=== PATIENT | female | born 1995 | race Caucasian/White ===

== ENCOUNTER 2018-02-06 09:44 | Emergency (ER) | payer MEDICAID ==
[~2018-02-06] VITALS: Ht 167.6 cm; Wt 60.0 kg
[~2018-02-06 09:44] MED LIST: DICL50 PO; OMEP20TA39 PO; TRAM50 PO; ZOFR4TAB3 SL
[2018-02-06 10:00] VITALS: BP 121/58; PULSE 97; RESP 15; TEMP 98.3; O2SAT 98
[2018-02-06 11:51] LABS: AUTOMATED NEUTROPHIL # 1.5 TH/MM3 (1.8-7.7); BASOPHIL % 0.3 % (0.0-2.0); EOSINOPHIL % 0.1 % (0.0-4.0); HEMATOCRIT 42.6 % (35.0-46.0); HEMOGLOBIN 14.6 GM/DL (11.6-15.3); LYMPH % 44.6 % (9.0-44.0); LYMPHOCYTE # 1.4 TH/MM3 (1.0-4.8); MEAN CELL VOLUME 88.3 FL (80.0-100.0); MEAN CORPUSCULAR HEMOGLOBIN 30.3 PG (27.0-34.0); MEAN CORPUSCULAR HGB CONC 34.3 % (32.0-36.0); MEAN PLATELET VOLUME 8.3 FL (7.0-11.0); MONO % 7.6 % (0.0-8.0); MONOCYTE # 0.2 TH/MM3 (0-0.9); NEUT % 47.4 % (16.0-70.0); PLATELET COUNT 151 TH/MM3 (150-450); RED BLOOD COUNT 4.82 MIL/MM3 (4.00-5.30); RED CELL DISTRIBUTION WIDTH 12.8 % (11.6-17.2); WHITE BLOOD COUNT 3.2 TH/MM3 (4.0-11.0)
--- NOTE | 2018-02-06 11:57 | PD ---
HPI Chief Complaint: Cold / Flu Symptoms Time Seen by Provider: 11:55 Travel History International Travel<30 days: No Contact w/Intl Traveler<30days: No History of Present Illness HPI 22-year-old female presents emergency department with 5 days of flulike symptoms including headache, cough, sore throat, postnasal drip, wheezing, and shortness of breath. Patient has had nausea and vomiting as well. Patient has had fever as high as 102.1 controlled with Tylenol. Patient reports decreased urinary output secondary to not being able to keep things down. Patient denies diarrhea. Patient denies significant abdominal pain. Patient states last week she had terrible body aches everywhere. She states those have improved, but her nausea and vomiting and cough continue. Patient denies smoking history. No history of needing inhalers or asthma in the past. Patient denies ear pain. She states she was seen last and had a negative flu test and given Zofran. She was seen at [facility]. She has no known drug allergies. [facility] Past Medical History ?: Unknown LMP: 01/2018 Past Surgical History Appendectomy: Yes Tonsillectomy: Yes Other Surgery: Yes (FACIAL) Social History Alcohol Use: Yes (OCCAS) Tobacco Use: No Substance Use: No Allergies-Medications (Allergen,Severity, Reaction): Coded Allergies: No Known Allergies (Unverified Adverse Reaction, Unknown, 02/06/18) Reported Meds & Prescriptions Reported Meds & Active Scripts Active No Active Prescriptions or Reported Medications Review of Systems Except as stated in HPI: all other systems reviewed are Neg General / Constitutional: Positive: Fever, Chills Eyes: No: Diploplia, Blurred Vision, Photophobia, Drainage, Visual changes HENT: Positive: Headaches, Lightheadedness, Sore Throat, Rhinitis, Rhinorrhea, Congestion, No: Vertigo, Nosebleed, Neck Stiffness, Neck Pain, Dental Difficulties, Earache Cardiovascular: No: Chest Pain or Discomfort Respiratory: Positive: Cough, Shortness of Breath, Wheezing, No: Sneezing, Orthopnea, Hemoptysis, Night Sweats, Pleuritic Pain Gastrointestinal: Positive: Nausea, Vomiting, Abdominal Pain (Cramping), No: Diarrhea Genitourinary: Positive: Decreased Urinary Output, No: Urgency, Frequency, Dysuria Musculoskeletal: No: Pain Skin: No Rash Neurologic: No: Weakness Psychiatric: No: Depression Endocrine: No: Polydipsia Hematologic/Lymphatic: No: Easy Bruising Physical Exam Narrative GENERAL: Patient appears ill but not septic. She is ambulatory to the room. SKIN: Warm and dry. Decreased pallor. Mildly decreased turgor. No tenting. HEAD: Atraumatic. Normocephalic. EYES: Pupils equal and round. No scleral icterus. No injection or drainage. ENT: No nasal bleeding, but moderate white nasal discharge. Mucous membranes pink and moist. TMs are dull bilaterally. No injection. Sinuses generalized pressure with palpation. Posterior pharynx appears irritated and erythematous without significant cobblestoning, exudate, or swelling. Airways patent. NECK: Trachea midline. Supple and nontender without significant lymphadenopathy. CARDIOVASCULAR: Regular rate and rhythm. RESPIRATORY: No accessory muscle use. Mild diffuse wheezes throughout to auscultation. No rhonchi or rales appreciated. Breath sounds equal bilaterally. GASTROINTESTINAL: Abdomen soft, non-tender, nondistended. Hepatic and splenic margins not palpable. MUSCULOSKELETAL: Extremities without clubbing, cyanosis, or edema. No obvious deformities. NEUROLOGICAL: Awake and alert. No obvious cranial nerve deficits. Motor grossly within normal limits. Five out of 5 muscle strength in the arms and legs. Normal speech. PSYCHIATRIC: Appropriate mood and affect; insight and judgment normal. Data Data Last Documented VS Vital Signs Date Time Temp Pulse Resp B/P (MAP) Pulse Ox O2 Delivery O2 Flow Rate FiO2 02/06/18 10:00 98.3 97 15 121/58 (79) 98 Orders Orders Complete Blood Count With Diff (02/06/18 11:06) Basic Metabolic Panel (Bmp) (02/06/18 11:06) Urinalysis - C+S If Indicated (02/06/18 11:06) Influenzae A/B Antigen (02/06/18 11:06) Ed Urine Pregnancytest Poc (02/06/18 11:06) Iv Access Insert/Monitor (02/06/18 12:10) Ecg Monitoring (02/06/18 12:10) Oximetry (02/06/18 12:10) Ondansetron Inj (Zofran Inj) (02/06/18 12:15) Sodium Chlor 0.9% 1000 Ml Inj (Ns 1000 M (02/06/18 12:10) Sodium Chloride 0.9% Flush (Ns Flush) (02/06/18 12:15) Ketorolac Inj (Toradol Inj) (02/06/18 12:15) Chest, Single Ap (02/06/18 12:10) Albuterol-Ipratropium Neb (Duoneb Neb) (02/06/18 12:15) Labs Laboratory Tests Test 02/06/18 11:20 02/06/18 13:50 White Blood Count 3.2 TH/MM3 Red Blood Count 4.82 MIL/MM3 Hemoglobin 14.6 GM/DL Hematocrit 42.6 % Mean Corpuscular Volume 88.3 FL Mean Corpuscular Hemoglobin 30.3 PG Mean Corpuscular Hemoglobin Concent 34.3 % Red Cell Distribution Width 12.8 % Platelet Count 151 TH/MM3 Mean Platelet Volume 8.3 FL Neutrophils (%) (Auto) 47.4 % Lymphocytes (%) (Auto) 44.6 % Monocytes (%) (Auto) 7.6 % Eosinophils (%) (Auto) 0.1 % Basophils (%) (Auto) 0.3 % Neutrophils # (Auto) 1.5 TH/MM3 Lymphocytes # (Auto) 1.4 TH/MM3 Monocytes # (Auto) 0.2 TH/MM3 Eosinophils # (Auto) 0.0 TH/MM3 Basophils # (Auto) 0.0 TH/MM3 CBC Comment DIFF FINAL Differential Comment Blood Urea Nitrogen 15 MG/DL Creatinine 0.78 MG/DL Random Glucose 76 MG/DL Calcium Level 8.5 MG/DL Sodium Level 139 MEQ/L Potassium Level 3.4 MEQ/L Chloride Level 105 MEQ/L Carbon Dioxide Level 26.1 MEQ/L Anion Gap 8 MEQ/L Estimat Glomerular Filtration Rate 93 ML/MIN Urine Color YELLOW Urine Turbidity HAZY Urine pH 6.0 Urine Specific [place] 1.031 Urine Protein 30 mg/dL Urine Glucose (UA) NEG mg/dL Urine Ketones 80 mg/dL Urine Occult Blood MOD Urine Nitrite NEG Urine Bilirubin NEG Urine Urobilinogen 2.0 MG/DL Urine Leukocyte Esterase NEG Urine RBC 2 /hpf Urine WBC 3 /hpf Urine Squamous Epithelial Cells 20 /hpf Urine Amorphous Sediment FEW Urine Bacteria OCC /hpf Urine Hyaline Casts 1 /lpf Urine Mucus FEW /lpf Microscopic Urinalysis Comment CULT NOT INDICATED MDM Medical Decision Making Medical Screen Exam Complete: Yes Emergency Medical Condition: Yes Differential Diagnosis Viral illness. Bronchitis. Gastroenteritis. Dehydration. Narrative Course Labs ordered in triage including CBC, BMP, urinalysis, and urine . IV order is added, the patient is given 2 L normal saline bolus. Patient is given Zofran 4 mg IV as well as 30 mg Toradol IV. DuoNeb 1 is ordered. Chest x-ray is ordered.\ Chest x-ray shows no acute process. Labs show WBC of 3.2, lymphocytes are 44.6%. Chemistries unremarkable except for potassium of 3.4. BUN/creatinine are normal. Rapid influenza is negative for a and B. Urinalysis is unremarkable for signs of infection. Patient is improved after the above treatment. Patient will be continued on azithromycin Dosepak. As directed Patient also given prednisone 20 mg daily for the next 5 days. Patient is given Zofran 4 mg every 6 hours as needed #12 . Patient is given albuterol metered-dose inhaler 2 puffs every 4-6 hours as needed cough and wheeze per Patient is to rest push fluids. Patient can take [id number] cough and cold medicines as needed. Patient to follow-up with symptoms do not improve or worsen in the next week. Diagnosis Primary Impression: Acute wheezy bronchitis Additional Impression: Post-tussive emesis Referrals: Primary Care Physician Patient Instructions: Acute Nausea and Vomiting (ED), Albuterol (By breathing) , General Instructions, How to Use a Metered-Dose Inhaler (DC) Additional Instructions: Patient will be continued on azithromycin Dosepak. As directed Patient also given prednisone 20 mg daily for the next 5 days. Patient is given Zofran 4 mg every 6 hours as needed #12 . Patient is given albuterol metered-dose inhaler 2 puffs every 4-6 hours as needed cough and wheeze per Patient is to rest push fluids. Patient can take [id number] cough and cold medicines as needed. Patient to follow-up with symptoms do not improve or worsen in the next week. Med/Other Pt SpecificInfo: Prescription(s) given Scripts No Active Prescriptions or Reported Meds Disposition: 01 DISCHARGE HOME Condition: Stable Ren Amador Feb 06, 2018 11:57
[2018-02-06 12:11] LABS: BICARBONATE 26.1 MEQ/L (21.0-32.0); CALCIUM 8.5 MG/DL (8.5-10.1); CREATININE 0.78 MG/DL (0.50-1.00)
[2018-02-06] MEDS ORDERED: RESP: ALBUTEROL 2.5 MG/IPRATROPIUM 0.5 MG NEB (SCH) INH ONE (12:15)
[2018-02-06] MEDS ORDERED: ONDANSETRON HCL 4 MG/2 ML VIAL IVP ONE (12:15)
[2018-02-06] MEDS ORDERED: SODIUM CHLORIDE 0.9% FLUSH 10 ML FLUSH IV FLUSH PRN (12:15)
[2018-02-06] MEDS ORDERED: KETOROLAC TROMETHAMINE 30 MG/ML (IVP) VIAL IVP ONE (12:15)
--- NOTE | 2018-02-06 12:27 | RADRPT ---
EXAM DATE/TIME: 02/06/2018 12:16 [place] COMPARISON: CHEST SINGLE AP, January 04, 2016, 17:23. INDICATIONS : Cough. Chest pain. Flu-like symptoms. MEDICAL HISTORY : None. SURGICAL HISTORY : None. ENCOUNTER: Initial ACUITY: 2 days PAIN SCORE: 3/10 LOCATION: Bilateral chest FINDINGS: A single view of the chest demonstrates the lungs to be symmetrically aerated without evidence of mas s, infiltrate or effusion. The cardiomediastinal contours are unremarkable. Osseous structures are intact. CONCLUSION: Normal examination for a patient of this age. No significant change has occurred. Srinath Infante MD on February 06, 2018 at 12:25 Board Certified Radiologist. This report was verified electronically.
--- NOTE | 2018-02-06 12:33 | PD ---
Physical Exam Narrative I, Dr. Rocha, have reviewed the advance practice practitioner's documentation and am in agreement, met with the patient face to face, made the diagnosis, and the medical decision making was done by me. *My assessment and Findings: Influenza vs. viral syndrome vs. URI 22yo F with no PMH presents to the ED with flu like symptoms for five days. Pt has generalized bodyaches, cough, nausea, vomiting, headache, fever. No focal neurologic deficits. No nuchal rigidity. Pt is well appearing. PSH include appendectomy. No abdominal tenderness on exam. Pt given NS IVF, zofra, duonebs. Labs reviewed, WBC decreased at 3.2. Mild hypokalemia at 3.4. UA negative. CXR negative. Influenza negative. Vital signs wnl. Return precautions given. Data Data Last Documented VS Vital Signs Date Time Temp Pulse Resp B/P (MAP) Pulse Ox O2 Delivery O2 Flow Rate FiO2 02/06/18 14:55 89 18 112/72 (85) 100 Room Air 02/06/18 10:00 98.3 Orders Orders Complete Blood Count With Diff (02/06/18 11:06) Basic Metabolic Panel (Bmp) (02/06/18 11:06) Urinalysis - C+S If Indicated (02/06/18 11:06) Influenzae A/B Antigen (02/06/18 11:06) Ed Urine Pregnancytest Poc (02/06/18 11:06) Iv Access Insert/Monitor (02/06/18 12:10) Ecg Monitoring (02/06/18 12:10) Oximetry (02/06/18 12:10) Ondansetron Inj (Zofran Inj) (02/06/18 12:15) Sodium Chlor 0.9% 1000 Ml Inj (Ns 1000 M (02/06/18 12:10) Sodium Chloride 0.9% Flush (Ns Flush) (02/06/18 12:15) Ketorolac Inj (Toradol Inj) (02/06/18 12:15) Chest, Single Ap (02/06/18 12:10) Albuterol-Ipratropium Neb (Duoneb Neb) (02/06/18 12:15) Ed Discharge Order (02/06/18 14:24) Ondansetron Inj (Zofran Inj) (02/06/18 15:00) Labs Laboratory Tests Test 02/06/18 11:20 02/06/18 13:50 White Blood Count 3.2 TH/MM3 Red Blood Count 4.82 MIL/MM3 Hemoglobin 14.6 GM/DL Hematocrit 42.6 % Mean Corpuscular Volume 88.3 FL Mean Corpuscular Hemoglobin 30.3 PG Mean Corpuscular Hemoglobin Concent 34.3 % Red Cell Distribution Width 12.8 % Platelet Count 151 TH/MM3 Mean Platelet Volume 8.3 FL Neutrophils (%) (Auto) 47.4 % Lymphocytes (%) (Auto) 44.6 % Monocytes (%) (Auto) 7.6 % Eosinophils (%) (Auto) 0.1 % Basophils (%) (Auto) 0.3 % Neutrophils # (Auto) 1.5 TH/MM3 Lymphocytes # (Auto) 1.4 TH/MM3 Monocytes # (Auto) 0.2 TH/MM3 Eosinophils # (Auto) 0.0 TH/MM3 Basophils # (Auto) 0.0 TH/MM3 CBC Comment DIFF FINAL Differential Comment Blood Urea Nitrogen 15 MG/DL Creatinine 0.78 MG/DL Random Glucose 76 MG/DL Calcium Level 8.5 MG/DL Sodium Level 139 MEQ/L Potassium Level 3.4 MEQ/L Chloride Level 105 MEQ/L Carbon Dioxide Level 26.1 MEQ/L Anion Gap 8 MEQ/L Estimat Glomerular Filtration Rate 93 ML/MIN Urine Color YELLOW Urine Turbidity HAZY Urine pH 6.0 Urine Specific [place] 1.031 Urine Protein 30 mg/dL Urine Glucose (UA) NEG mg/dL Urine Ketones 80 mg/dL Urine Occult Blood MOD Urine Nitrite NEG Urine Bilirubin NEG Urine Urobilinogen 2.0 MG/DL Urine Leukocyte Esterase NEG Urine RBC 2 /hpf Urine WBC 3 /hpf Urine Squamous Epithelial Cells 20 /hpf Urine Amorphous Sediment FEW Urine Bacteria OCC /hpf Urine Hyaline Casts 1 /lpf Urine Mucus FEW /lpf Microscopic Urinalysis Comment CULT NOT INDICATED MDM Supervised Visit with CINTHYA: Yes Diagnosis Primary Impression: Flu-like symptoms Scripts Prednisone (Prednisone) 20 Mg Tab 20 MG PO DAILY for 5 Days, #5 TAB 0 Refills Prov: RochaTaylor DO 02/06/18 Ondansetron (Zofran) 4 Mg Tab 4 MG PO Q6HR Y for NAUSEA OR VOMITING, #12 TAB 0 Refills Prov: RochaTaylor DO 02/06/18 Albuterol 18 GM Inh (Ventolin Hfa 18 GM Inh) 90 Mcg/Act Aer 2 PUFF INH Q4-6H Y for SHORTNESS OF BREATH, #1 INHALER 0 Refills Prov: Taylor Rocha DO 02/06/18 Azithromycin (Azithromycin) 250 Mg Tab 250 MG PO DIRECTED for Infection, #6 TAB 0 Refills Take 2 tabs (500 mg) on day 1 then 1 tab daily x 4 days. Prov: Taylor Rocha DO 02/06/18 Condition: Stable Taylor Rocha DO Feb 06, 2018 12:33
[2018-02-06] MEDS: SODIUM CHLOR 0.9% 1000 ML INJ 1,000 ML IV SCH ×2 (12:41→14:58)
[2018-02-06 14:15] LABS: AMORPHOUS SEDIMENT, URINE FEW; BACTERIA, URINE OCC /hpf; BILIRUBIN, URINE NEG (NEG); BLOOD, URINE MOD (NEG); GLUCOSE,URINE NEG (NEG); HYALINE CAST, URINE 1 /lpf (RARE); KETONE, URINE 80 mg/dL (NEG); MUCUS URINE FEW /lpf (OCC); NITRITE,URINE NEG (NEG); SQUAMOUS EPITHELIAL CELL URINE 20 /hpf (0-5); URINE COLOR YELLOW (YELLW/STRAW); URINE LEUKOCYTE ESTERASE NEG (NEG)
[2018-02-06] MEDS ORDERED: VENTAER INH (14:23)
[2018-02-06] MEDS ORDERED: PRED20 PO (14:23)
[2018-02-06] MEDS ORDERED: ZOFR4TAB PO (14:23)
[2018-02-06] MEDS ORDERED: AZIT250T3 PO (14:23)
[2018-02-06 14:55] VITALS: BP 112/72; PULSE 89; RESP 18; O2SAT 100
[2018-02-06] MEDS ORDERED: ONDANSETRON HCL 4 MG/2 ML VIAL IV PUSH ONE (15:00)
== END 2018-02-06 16:18 | disposition home or self-care (01) ==
LOC: NED 09:44 → NEPD 16:18
DX: J20.9 Acute bronchitis, unspecified (principal); E87.6 Hypokalemia
CPT/HCPCS: 71045; 80048; 81001; 84703; 85025; 87804; 94664; 96361; 96374; 96375; 96376; 99284; J1885; J2405; J7030